=== PATIENT | female | born 1995 ===

== ENCOUNTER 2020-04-11 21:10 | Outpatient (REF) | payer SELFPAY ==
[2020-04-14 15:47] LABS: Chlamydia Result Negative (Negative); GC Result Negative (Negative)
== END 2020-04-11 21:30 ==
LOC: NCHCN 21:10
PROVIDERS: Visit Provider Nurse Practitioner Family
DX: Z11.3 Encounter for screening for infections with a predominantly sexual mode of transmission (principal)
CPT/HCPCS: 87491; 87591

== ENCOUNTER 2021-04-17 18:53 | Outpatient (REF) | payer MEDICAID, SELFPAY ==
[2021-04-17 17:44] LABS: HCT 43.2 % (36.0-46.0); HGB 14.5 g/dL (11.2-15.7); MCH 28.8 pg (27.0-33.0); MCHC 33.6 % (32.0-36.0); MCV 85.9 fL (80-95); MPV 11.1 fL (8.0-11.0); Platelet Count 201 10^3/uL (130-400); RBC 5.03 10^6/uL (3.93-5.22); RDW 12.6 % (11.7-14.6); RDW-SD 39.6 fL; WBC 5.58 10^3/uL (4.4-10.8)
[2021-04-17 17:47] LABS: ALT 32 U/L (14-59); AST 20 U/L (15-37); Albumin 4.3 g/dL (3.4-5.0); Alkaline Phosphatase 69 U/L (46-116); Anion Gap 9.5 mmol/L (3-11); BUN 15 mg/dL (7-18); Bilirubin, Total 0.5 mg/dL (0.2-1.0); CO2 27.5 mmol/L (21.0-32.0); CREATININE 0.8 mg/dL (0.55-1.02); Calcium 9.1 mg/dL (8.5-10.1); Calculated LDL 125 mg/dL (<100); Chloride 104 mmol/L (98-107); Cholesterol 193 mg/dL (<200); Glucose 90 mg/dL (74-106); HDL Cholesterol 42 mg/dL (40-60); Potassium 4.3 mmol/L (3.5-5.1); Sodium 141 mmol/L (136-145); TSH (W/Ref FT4) 1.86 uIU/mL (0.36-3.74); Total Protein 7.3 g/dL (6.4-8.2); Triglyceride 132 mg/dL (<150)
== END 2021-04-17 18:54 | disposition home or self-care (01) ==
LOC: NCHCN 18:53
PROVIDERS: Visit Provider Family Medicine
DX: K58.9 Irritable bowel syndrome, unspecified (principal); E66.9 Obesity, unspecified; Z13.29 Encounter for screening for other suspected endocrine disorder
CPT/HCPCS: 80053; 80061; 85027; 84443

== ENCOUNTER 2021-08-19 09:22 | Outpatient (REF) | payer MEDICAID, SELFPAY ==
--- NOTE | 2021-08-19 08:20 | PAPFT_PTH ---
PATIENT: Lesvia Jaimes LOC: [facility] U#:[id number] AGE/SX: 26/F ROOM: RE08/19/[address]: Maggie Mcgrath : 1995 BED: DIS: 08/19/2021 SPEC #: [id number] RECD: 08/19/21 13:04 STATUS: MARINA RECarolin #: [id number] RAGINI: 08/19/21 08:[address]: Maggie Mcgrath DEPT: [facility] Cytology RECD BY: Elizabeth Vega Tissues: 1 - CX/ENDOCX FOR PAP SMEARS Procedures: PAP THIN PREP/[facility] Screening HPV DNA PROBE Comments: [id number]
[2021-08-20 16:53] LABS: COVID-19 RT-PCR UVMMC Result Negative (Negative)
== END 2021-08-19 09:23 | disposition home or self-care (01) ==
LOC: LBN 09:22
PROVIDERS: Referring Provider Family Medicine; Visit Provider Family Medicine
DX: Z12.4 Encounter for screening for malignant neoplasm of cervix (principal); Z20.822 Contact with and (suspected) exposure to COVID-19; Z87.42 Personal history of other diseases of the female genital tract; Z11.51 Encounter for screening for human papillomavirus (HPV); Z11.52 Encounter for screening for COVID-19
CPT/HCPCS: 88142; U0003; 87624

== ENCOUNTER 2025-06-20 14:36 | Outpatient (REF) | payer MEDICAID, SELFPAY ==
--- NOTE | 2025-06-20 14:00 | PAPFT_PTH ---
PATIENT: Lesvia Jaimes LOC: [facility] U#:[id number] AGE/SX: 30/F ROOM: RE06/20/[address]: Maggie Mcgrath : 1995 BED: DIS: 06/20/2025 SPEC #: [id number] RECD: 06/21/25 11:55 STATUS: MARINA REQ #: [id number] RAGINI: 06/20/25 14:[address]: Maggie Mcgrath DEPT: [facility] Cytology RECD BY: Elizabeth Vega ENTERED: 06/21/25 11:55 SP TYPE: PAPFT JOHNNIE DR: Unknown,Unknown Tissues: 1 - CX/ENDOCX FOR PAP SMEARS Procedures: PAP THIN PREP/[facility] Screening HPV DNA PROBE Comments: [id number] (HPV 16 & 18/45)
== END 2025-06-20 14:37 | disposition home or self-care (01) ==
LOC: NCHCN 14:36
PROVIDERS: Visit Provider Family Medicine
DX: Z12.4 Encounter for screening for malignant neoplasm of cervix (principal); Z00.00 Encounter for general adult medical examination without abnormal findings
CPT/HCPCS: 88142; 87624